=== PATIENT | male | born 1975 ===

== ENCOUNTER 2025-03-25 15:06 | Emergency (ER) | payer SELFPAY ==
[2025-03-25 15:13] VITALS: BP 160/90; PULSE 60; O2SAT 94
--- NOTE | 2025-03-25 15:21 | ED_ITS ---
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 He states it looked like a regular oxycodone but the next thing he remembers is he felt a little bit woozy and when he woke up on the ground people were surrounding him saying lay still lay still. He woke up after 4 mg intranasal Narcan. He denies any trauma, he has no suicidal ideation, he states he is not interested in detox. He does not carry Narcan. On arrival he has, cooperative states he is thirsty and plans to leave AMA. complaint: accidental overdose Onset (ago): minute(s) Context: Accidental Overdose: wanted to get high Treatments Prior to Arrival: narcan (4 mg) Related Data Allergies Allergy/AdvReac Type Severity Reaction Status Date / Time No Known Allergies Allergy Verified 03/25/25 15:26 Review of Systems Review of Systems: Constitutional : No Fever, No Chills, No Fatigue ENT/Mouth : No sore throat, No Rhinorrhea Eyes: No Eye Pain, No Swelling, No Redness Cardiovascular : No Chest Pain, No SOB, No Dyspnea on Exertion Respiratory : No Cough, No Sputum Gastrointestinal : No Nausea, No Vomiting, No Diarrhea, No abdominal Pain Genitourinary : No Dysuria, No Urinary Frequency, No Hematuria, Musculoskeletal : No joint pain, No Myalgias, No Joint Swelling Skin : No Skin Lesions, No rash Neuro : No Weakness, No Numbness, No Dizziness, no Headache All other systems reviewed and are negative PMFSH Past Medical History Attestation statement: The following information was validated with the patient. Source: old records reviewed Medical History (Updated 03/25/25 @ 15:40 by Maya Krishna DO) Drug abuse Social History Social History (Updated 03/25/25 @ 15:39 by Maya Krishna DO) Patient Tobacco Use Status: Tobacco use Unknown Physical Exam Vital Signs: Vital Signs: Last Vital Signs Temp 97.9 F 03/25/25 15:22 Pulse 58 03/25/25 15:22 Resp 16 03/25/25 15:22 BP 146/83 H 03/25/25 15:22 Pulse Ox 96 03/25/25 15:22 O2 Del Method Room Air 03/25/25 15:22 BMI result Body Mass Index 25.4 Appearance: Alert. Oriented X3. No acute distress. Eyes: Pupils equal, round and reactive to light. ENT: Pharynx normal. Neck: Normal inspection. Neck supple. CVS: Normal heart rate and rhythm. Pulses normal. Respiratory: No respiratory distress. Breath sounds normal. Abdomen: Soft and nontender. Skin: Skin warm and dry. Normal skin color. Normal skin turgor. Extremities: No lower extremity edema. No calf ttp Neuro: Oriented X 3. No motor deficit. No sensory deficit. CN2-12 intact Medications Administered Discontinued Medications Generic Name Dose Route Start Last Admin Trade Name Freq PRN Reason Stop Dose Admin Naloxone HCl 8 mg 03/25/25 15:13 03/25/25 15:28 Naloxone Hcl Nasal Take Home 4 Mg [place] NOSTRILALT 03/25/25 15:14 Not Given ONCE ONE Medical Decision Making Medical Decision Making MDM Narrative: 49-year-old male with accidental overdose but has no SI and declines SUDE evaluation he does agree to have an outpatient consult [facility], he is GCS 15, he is awake alert and oriented and can leave AMA if he chooses. We will DC with home Narcan Differential Diagnosis Differential Diagnoses: The differential diagnosis associated with the presentation includes Opiate use disorder Admission/Observation Consideration of admission/observation: Escalation of care including admission/observation considered He refuses workup Independent Historian Clinical information obtained from an independent historian. History obtained from or confirmed by: EMS External Record Review External record reviewed: Outpatient record Prescription Management I considered prescription management with: Other Discharge Plan Discharge Clinical Impression: Drug abuse Overdose Qualifiers: Encounter type: initial encounter Injury intent: accidental or unintentional Qualified Code(s): T50.901A - Poisoning by unspecified drugs, medicaments and biological substances, accidental (unintentional), initial encounter Patient Disposition: Left Against Medical Advice Instructions: Adult Overdose (ED), Against Medical Advice (ED) Additional Instructions: Overdose You were seen in our Emergency Department for an overdose today. You received narcan in order to reverse the effects of overdose. Narcan only lasts about 45 min to 1 hour in the system. You may have been given narcan to take home with you today, please keep it near you if you are going to use again, so others can use it if needed.? The number one risk for fatal overdose is using alone? [employer] is a 13/12 hotline where you can be on the phone with someone while you use, and they can call for help if they suspect an overdose: [phone] Things to look out for when you leave include severe vomiting or diarrhea, headaches, muscle cramps, fever, coughing, chest pain, or if you feel so short of breath you cannot walk to the bathroom. Please seek care and return any time for worsening symptoms.? You may have been provided with safer injection?items, please take time to take care of YOU and your health. Use new supplies whenever possible to lessen the chances of infections and other illnesses.? If you need more supplies, please go [facility],? [address] [place] [address] OR you can call or text to coordinate delivery of safer supplies. If you decide you want to stop or cut down on how much you?re using, please call the numbers on the list provided to you or you can come to our outpatient Addiction Treatment office [facility] (M-F 9am-5p) [address] [place] [address], [address] [phone] Interventions: ED Discharge Assessment Last Done: 03/25/25 15:38 Discharge Date/Time: 03/25/25 15:38 Print Language: Ecuadorean
[2025-03-25 15:22] VITALS: BP 146/83; PULSE 58; RESP 16; TEMP 36.6; O2SAT 96; BMI 25.4
[2025-03-25 15:38] VITALS: BP 146/83; PULSE 58; RESP 16; TEMP 36.6; O2SAT 96
== END 2025-03-25 15:39 | disposition home or self-care (01) ==
PROVIDERS: Emergency Provider Emergency Medicine
DX: T50.901A Poisoning by unspecified drugs, medicaments and biological substances, accidental (unintentional), initial encounter (principal); Y92.9 Unspecified place or not applicable
CPT/HCPCS: 99282